=== PATIENT | male | born 1960 | race Caucasian/White ===

== ENCOUNTER 2017-10-22 16:07 | Emergency (ER) | payer OTHER ==
--- NOTE | 2017-10-22 16:48 | ER Document Report ---
ED Fall - General Chief Complaint: Fall Injury Stated Complaint: FALL / HIP INJURY Time Seen by Provider: 10/22/17 16:35 Mode of Arrival: Wheelchair Information source: Patient TRAVEL OUTSIDE OF THE U.S. IN LAST 30 DAYS: No - HPI Occurred: This afternoon Where: Home Context: Fell from standing Associated symptoms: Lost consciousness - HAS SYNCOPAL & NEAR-SYNCOPAL EPISODES ROUTINELY, THOUGHT TO BE PART OF SEIZURE D/O Location of injury/pain: Hip - LEFT Quality of pain: Cramping, Sharp Severity: Moderate - Related data Allergies/Adverse Reactions: quetiapine fumarate [From SeroSIZESEEKERl] Allergy (Mild, Verified 10/22/17 16:08) Past Medical History - General Information source: Patient - Social History Smoking Status: Current Every Day Smoker Chew tobacco use (# tins/day): No Frequency of alcohol use: None Drug Abuse: Marijuana Family History: Arthritis, DM Patient has suicidal ideation: No Patient has homicidal ideation: No Pulmonary Medical History: Reports: Hx Pneumonia Renal/ Medical History: Denies: Hx Peritoneal Dialysis GI Medical History: Reports: Hx Cirrhosis Musculoskeltal Medical History: Reports Hx Arthritis, Reports Hx Musculoskeletal Deformity, Reports Hx Musculoskeletal Trauma Psychiatric Medical History: Reports: Hx Depression Traumatic Medical History: Reports: Hx Fractures Past Surgical History: Reports: Hx Abdominal Surgery - hernia, Hx Orthopedic Surgery - back, neck - Immunizations Hx Pneumococcal Vaccination: 08/03/12 Review of Systems - Review of Systems Constitutional: No symptoms reported EENT: No symptoms reported Cardiovascular: No symptoms reported Respiratory: No symptoms reported Gastrointestinal: No symptoms reported Genitourinary: No symptoms reported Musculoskeletal: See HPI Skin: No symptoms reported Neurological/Psychological: See HPI Physical Exam - Vital signs Vitals: Temp Pulse Resp BP Pulse Ox 97.4 F 110 H 18 119/91 H 92 10/22/17 16:13 10/22/17 16:13 10/22/17 16:13 10/22/17 16:13 10/22/17 16:13 Interpretation: Tachycardic. No: Tachypneic - General General appearance: Appears well, Alert In distress: None - HEENT Head: Normocephalic Eyes: Normal Conjunctiva: Normal Ears: Normal Nasal: Normal Mouth/Lips: Normal Mucous membranes: Normal - Respiratory Respiratory status: No respiratory distress Breath sounds: Normal - Cardiovascular Rhythm: Regular Heart sounds: Normal auscultation Murmur: No - Abdominal Inspection: Normal Distension: No distension - Extremities General upper extremity: Normal inspection General lower extremity: Normal inspection, Tender - L. HIP Hip: Tender - OVER GRT. TROCH, Pain with ROM, Unable to bear weight. No: Deformity - Neurological Neuro grossly intact: Yes Cognition: Normal Orientation: AAOx4 - Psychological Associated symptoms: Normal affect, Normal mood - Skin Skin Temperature: Warm Skin Moisture: Dry Skin Color: Normal Skin Turgor: Elastic Course - Vital Signs Vital signs: Temp Pulse Resp BP Pulse Ox 97.4 F 110 H 18 119/91 H 92 10/22/17 16:13 10/22/17 16:13 10/22/17 16:13 10/22/17 16:13 10/22/17 16:13 - Diagnostic Test Radiology reviewed: Image reviewed, Reports reviewed Discharge - Discharge Clinical Impression: Contusion, hip Qualifiers: Encounter type: initial encounter Laterality: left Qualified Code(s): S70.02XA - Contusion of left hip, initial encounter Condition: Stable Disposition: HOME, SELF-CARE Instructions: Contusion ([facility]), Ice Packs ([facility]), Oral Narcotic Medication ([facility]) Additional Instructions: CRUTCHES, NO WEIGHT BEARING ON LEFT HIP FOR NEXT 2-3 DAYS, THEN GRADUALLY RESUME WEIGHT BEARING TOLERATED. CONTINUE YOUR USUAL MEDICATIONS. FOLLOW UP WITH YOUR PRIMARY CARE PROVIDER IN 2-3 DAYS. Prescriptions: Hydrocodone/Acetaminophen [Eldridge 5-325 mg Tablet] 1 tab PO Q4HP PRN #14 tablet PRN Reason: For Pain
--- NOTE | 2017-10-22 17:01 | RADIOLOGY REPORT (SQ) ---
EXAM DESCRIPTION: HIP LEFT AP/LATERAL COMPLETED DATE/TIME: 10/22/2017 4:51 pm REASON FOR STUDY: left hip pain s/p fall COMPARISON: None. NUMBER OF VIEWS: Two views. TECHNIQUE: AP pelvis and additional frog-leg view of the left hip. LIMITATIONS: None. FINDINGS: MINERALIZATION: Normal. LEFT HIP: No fracture or dislocation. No worrisome bone lesions. RIGHT HIP: No fracture or dislocation. No worrisome bone lesions. PUBIS AND ISCHIUM: No fracture. PELVIS: No fracture. SACRUM: No fracture or dislocation. No worrisome bone lesions. LOWER LUMBAR SPINE: No fracture or dislocation. No worrisome bone lesions. No significant disc disea se. SOFT TISSUES: No findings. OTHER: Fusion hardware noted in the lower lumbar spine. IMPRESSION: NEGATIVE STUDY OF THE LEFT HIP AND PELVIS. NO RADIOGRAPHIC EVIDENCE OF ACUTE INJURY. TECHNICAL DOCUMENTATION: JOB ID: [id number] [employer]- All Rights Reserved Reading location - IP/workstation name: [email or web address]
[2017-10-22] MEDS ORDERED: HYDROMORPHONE HCL INJ/PF 2 MG/ML AMPULE IM ONE ×2 (17:03→18:52)
[2017-10-22] MEDS ORDERED: DIAZEPAM 5 MG TABLET PO ONE (17:03)
[2017-10-22 19:13] VITALS: BP 113/70
== END 2017-10-22 19:25 | disposition home or self-care (01) ==
LOC: ER 16:07
DX: S70.02XA Contusion of left hip, initial encounter (principal); R55 Syncope and collapse; W19.XXXA Unspecified fall, initial encounter; F17.200 Nicotine dependence, unspecified, uncomplicated
CPT/HCPCS: 99283; 96372; 73502; J1170

== ENCOUNTER 2020-03-28 11:56 | Emergency (ER) | payer OTHER ==
[2020-03-28] MEDS ORDERED: ONDANSETRON HCL INJ/PF 4 MG/2 ML SDV IV ONE (12:24)
--- NOTE | 2020-03-28 12:26 | ER Document Report ---
ED Medical Screen (RME) - General Stated Complaint: BODY PAIN Time Seen by Provider: 03/28/20 12:18 Mode of Arrival: Medic Information source: Patient Notes: Patient presents complaining of nausea and vomiting for the past 3 weeks. Patient thinks that his vomiting is due to being taken off of Suboxone 3 weeks ago. Patient states he has vomited once today. Patient complains of generalized body aches although denies any abdominal tenderness. Patient states that he felt as though his heart was beating irregularly and he had palpitations which prompted his visit here today. Patient denies any diarrhea, cough or cold symptoms. Patient states he has not taken any of his usual regular medications due to the nausea. Patient has a history of seizures, depression, PTSD, COPD chronic neck and back pain and dyslipidemia. I have greeted and performed a rapid initial assessment of this patient. A comprehensive ED assessment and evaluation of the patient, analysis of test results and completion of the medical decision making process will be conducted by additional ED providers. TRAVEL OUTSIDE OF THE U.S. IN LAST 30 DAYS: No - Related Data Allergies/Adverse Reactions: quetiapine fumarate [From Seroappirisl] Allergy (Mild, Verified 03/28/20 12:21) Past Medical History Pulmonary Medical History: Reports: Hx Pneumonia Renal/ Medical History: Denies: Hx Peritoneal Dialysis GI Medical History: Reports: Hx Cirrhosis Musculoskeltal Medical History: Reports Hx Arthritis, Reports Hx Musculoskeletal Deformity, Reports Hx Musculoskeletal Trauma Psychiatric Medical History: Reports: Hx Depression Traumatic Medical History: Reports: Hx Fractures Past Surgical History: Reports: Hx Abdominal Surgery - hernia, Hx Orthopedic Surgery - back, neck Physical Exam - Vital signs Vitals: Temp Pulse Resp BP Pulse Ox 98.1 F 85 16 147/102 H 96 03/28/20 12:06 03/28/20 12:06 03/28/20 12:06 03/28/20 12:06 03/28/20 12:06 - General General appearance: Appears well, Alert In distress: None - Cardiovascular Rhythm: Regular Heart sounds: S1 appreciated, S2 appreciated Course - Vital Signs Vital signs: Temp Pulse Resp BP Pulse Ox 98.1 F 85 16 147/102 H 96 03/28/20 12:06 03/28/20 12:06 03/28/20 12:06 03/28/20 12:06 03/28/20 12:06
[2020-03-28] MEDS ORDERED: HYDROMORPHONE HCL INJ/PF 2 MG/ML AMPULE IV ONE (13:08)
[2020-03-28] MEDS ORDERED: CLONIDINE HCL 0.2 MG TABLET PO ONE (13:08)
--- NOTE | 2020-03-28 13:09 | ER Document Report ---
ED General - General Chief Complaint: Pain All Over Stated Complaint: BODY PAIN Time Seen by Provider: 03/28/20 12:18 Mode of Arrival: Ambulatory Information source: Patient Notes: 59-year-old male presenting to the emergency department with a complaint of chronic pain. Apparently he has had multiple surgical procedures on his back and was taking Suboxone daily for the past year and a half. He was living in [place] and receiving the medication physician from [place]. Apparently the physician discontinued prescribing the medication last month. He has symptoms normal diffusely. Contacted the [facility] regarding a outpatient appointment and states that he is scheduled clinic [place], [place]. Presently he is diffuse pain and heaviness in his chest. TRAVEL OUTSIDE OF THE [place] IN LAST 30 DAYS: No - Related Data Allergies/Adverse Reactions: quetiapine fumarate [From [employer]ero[employer]] Allergy (Mild, Verified 03/28/20 12:21) Home Medications: atrovastatin. keppra. suboxone Past Medical History - General Information source: Patient - Social History Smoking Status: Current Every Day Smoker Chew tobacco use (# tins/day): No Frequency of alcohol use: None Drug Abuse: Marijuana Family History: Arthritis, DM Patient has homicidal ideation: No Pulmonary Medical History: Reports: Hx Pneumonia Renal/ Medical History: Denies: Hx Peritoneal Dialysis GI Medical History: Reports: Hx Cirrhosis Musculoskeletal Medical History: Reports Hx Arthritis, Reports Hx Musculo skeletal Deformity, Reports Hx Musculoskeletal Trauma Psychiatric Medical History: Reports: Hx Depression Traumatic Medical History: Reports: Hx Fractures Past Surgical History: Reports: Hx Abdominal Surgery - hernia, Hx Orthopedic Surgery - back, neck - Immunizations Hx Pneumococcal Vaccination: 08/03/12 Review of Systems - Review of Systems Notes: Constitutional: Negative for fever. HENT: Negative for sore throat. Eyes: Negative for visual changes. Cardiovascular: Negative for chest pain. Respiratory: Negative for shortness of breath. Gastrointestinal: Negative for abdominal pain, vomiting or diarrhea. Genitourinary: Negative for dysuria. Musculoskeletal: Diffuse pain Skin: Negative for rash. Neurological: Negative for headaches, weakness or numbness. 10 point ROS negative except as marked above and in HPI. Physical Exam - Vital signs Vitals: Temp Pulse Resp BP Pulse Ox 98.1 F 85 16 147/102 H 96 03/28/20 12:06 03/28/20 12:06 03/28/20 12:06 03/28/20 12:06 03/28/20 12:06 - Notes Notes: PHYSICAL EXAMINATION: Physical Exam: General: Well-nourished well-developed in no acute distress HEENT: NC/AT, pupils equal round and reactive to light, MM moist,nares clear, oropharynx clear, airway patent Neck: supple, no adenopathy, no masses. Good range of motion Lungs: clear, no wheezing, no rales no rhonchi CVS: Regular rate and rhythm no murmur gallop or rub + tenderness in the anterior sternum Abdomen: Soft, active, nontender, no masses, no hepatosplenomegaly Ext: + Back pain, diffuse pain bilateral upper and bilateral lower extremities Neuro: Alert and responsive, moving all 4 extremities on command, cranial nerves intact, no focal findings Skin: Intact no open lesions, no rash PSYCH: Normal mood, normal affect. Course - Re-evaluation Re-evalutation: 03/28/20 15:26 Patient has had a remarkable response to treatment, 1 mg of hydromorphone fluids and he is blood pressure has improved and the pain has significantly improved. I explained to the patient that he is likely in withdrawal from opiates. I have suggested that he get the referral to a pain management clinic. Patient states that he is waiting for the [facility] to make a referral. He is given a prescription for clonidine and hydroxyzine. I am encouraging him to follow-up as noted. - Vital Signs Vital signs: Temp Pulse Resp BP Pulse Ox 98.1 F 85 20 128/87 H 93 03/28/20 12:21 03/28/20 12:06 03/28/20 14:00 03/28/20 14:00 03/28/20 14:00 - Laboratory Result Diagrams: 03/28/20 12:43 03/28/20 12:43 Laboratory results interpreted by me: 03/28/20 12:43 Creatine Kinase 46 L I have reviewed laboratory data and used this information for the treatment decisions regarding the patient. - Diagnostic Test Radiology reviewed: Image reviewed, Reports reviewed Radiology results interpreted by me: 03/28/20 15:29 Chest X-Ray 03/28/20 12:23 IMPRESSION: NO ACUTE RADIOGRAPHIC FINDING IN THE CHEST. Discharge - Discharge Clinical Impression: Diffuse myofascial pain syndrome, Opiate withdrawal Condition: Good Disposition: HOME, SELF-CARE Additional Instructions: You were seen in the emergency department today with diffuse pain and discomfort likely related to your chronic medical problems but also related to opiate withdrawal. You were given prescriptions for clonidine and hydroxyzine to use for withdrawal symptoms. These take these medications as prescribed. Also given a prescription for pain medications Virgie, please use these medications if your symptoms worsen while taking the medications for withdrawal. HOME CARE INSTRUCTIONS & INFORMATION: Thank you for choosing us for your medical needs. We hope you're satisfied with the care you received. After you leave, you must properly care for your problem and, at the same time, observe its progress. Any condition can change. Some illnesses can change rapidly over hours or days. If your condition worsens, return to the Emergency Department or see your physician promptly. ABOUT YOUR X-RAYS AND EKG'S: If you had an EKG or X-rays taken, they have been read by the Emergency Physician. The X-rays and EKG's will also be read by a Radiologist or [employer] within 24 hours. If discrepancies are noted, you will be notified by telephone. Please be certain the ED has a correct telephone number & address where you can be reached. Also, realize that some fractures or abnormalities do not show up on initial X-rays. If your symptoms continue, see your physician. ABOUT YOUR LABORATORY TEST: If you had laboratory tests, the results have been reviewed by the Emergency Physician. Some test results (for example cultures) may not be available for several days. You will be contacted if any test result shows you need additional treatment. Please be certain the ED has a correct telephone number and address where you can be reached. ABOUT YOUR MEDICATIONS: You will receive instructions on how to take your medicine on the prescription label you receive. Additional information may be provided by the Pharmacy. If you have questions afterwards, call the ED for clarification or further instructions. Some prescribed medications may cause drowsiness. Do not perform tasks such as driving a car or operating machinery without consulting your Pharmacist. If you feel you need a refill of pain medication, your condition will need re-evaluation. Please do not call for a refill of any medication. ABOUT YOUR SIGNATURE: Signature of this document acknowledges to followin. Understanding that you received emergency treatment and that you may be released before al medical problems are known or treated. Please be certain the ED has a correct phone number & address where you can be reached. 2. Acknowledgement that you will arrange for follow-up care as recommended. 3. Authorization for the Emergency Physician to provide information to your follow-up Physician in order to maximize your care. AT ANY TIME, IF YOUR SYMPTOMS CHANGE SIGNIFICANTLY OR WORSEN OR YOU DEVELOP NEW SYMPTOMS, RETURN TO THE EMERGENCY DEPARTMENT IMMEDIATELY FOR RE-EVALUATION. OUR GOAL IS TO PROVIDE EXCELLENT MEDICAL CARE! WE HOPE THAT WE HAVE MET YOUR EXPECTATIONS DURING YOUR EMERGENCY DEPARTMENT VISIT AND THAT YOU FEEL YOU HAVE RECEIVED EXCELLENT CARE! Prescriptions: Clonidine HCl [Catapres] 0.2 mg PO DAILY #30 tablet Hydrocodone/Acetaminophen [Virgie 5-325 mg Tablet] 1 tab PO Q6 PRN #10 tablet PRN Reason: Hydroxyzine Pamoate [Vistaril] 25 mg PO Q6 5 Days #20 capsule
[2020-03-28 13:22] LABS: ABSOLUTE BASOPHILS # (AUTO) 0.1 10^3/uL (0.0-0.2); ABSOLUTE EOSINOPHILS # (AUTO) 0.1 10^3/uL (0.0-0.6); ABSOLUTE LYMPHOCYTES (AUTO) 2.5 10^3/uL (0.5-4.7); ABSOLUTE MONOCYTES (AUTO) 0.5 10^3/uL (0.1-1.4); ABSOLUTE NEUT (AUTO) 4.8 10^3/uL (1.7-8.2); BASOPHILS % (AUTO) 0.8 % (0-2); EOSINOPHILS % (AUTO) 1.5 % (0-6); HEMATOCRIT 45.8 % (37.9-51.0); HEMOGLOBIN 16.2 g/dL (13.5-17.0); LYMPHOCYTES % (AUTO) 31.4 % (13-45); MEAN CORPUSCULAR HEMOGLOBIN 32.6 pg (27.0-33.4); MEAN CORPUSCULAR HGB CONC 35.3 g/dL (32.0-36.0); MEAN CORPUSCULAR VOLUME 92 fl (80-97); MONOCYTES % (AUTO) 6.6 % (3-13); PLATELET COUNT 185 10^3/uL (150-450); RED BLOOD COUNT 4.97 10^6/uL (4.35-5.55); RED CELL DISTRIBUTION WIDTH 13.7 % (11.5-14.0); SEGMENTED NEUTROPHILS % (AUTO) 59.7 % (42-78); TOTAL CELLS COUNTED % (AUTO) 100 %
[2020-03-28 13:45] LABS: ALBUMIN 4.7 g/dL (3.5-5.0); ALKALINE PHOSPHATASE 61 U/L (38-126); ANION GAP 10 (5-19); ASPARTATE AMINO TRANSFERASE 24 U/L (17-59); BILIRUBIN,DIRECT 0.4 mg/dL (0.0-0.4); BILIRUBIN,TOTAL 0.8 mg/dL (0.2-1.3); BLOOD UREA NITROGEN 14 mg/dL (7-20); CALCIUM 10.2 mg/dL (8.4-10.2); CARBON DIOXIDE 24 mmol/L (22-30); CHLORIDE 104 mmol/L (98-107); CREATINE KINASE 46 U/L (55-170); GLUCOSE 106 mg/dL (75-110); POTASSIUM 4.6 mmol/L (3.6-5.0); TOTAL PROTEIN 7.6 g/dL (6.3-8.2)
--- NOTE | 2020-03-28 13:47 | RADIOLOGY REPORT (SQ) ---
EXAM DESCRIPTION: CHEST SINGLE VIEW IMAGES COMPLETED DATE/TIME: 03/28/2020 1:09 pm REASON FOR STUDY: palpitations COMPARISON: 2016 EXAM PARAMETERS: NUMBER OF VIEWS: One view. TECHNIQUE: Single frontal radiographic view of the chest acquired. RADIATION DOSE: NA LIMITATIONS: None. FINDINGS: LUNGS AND PLEURA: No opacities, masses or pneumothorax. No pleural effusion. MEDIASTINUM AND HILAR STRUCTURES: No masses. Contour normal. HEART AND VASCULAR STRUCTURES: Heart normal in size. Normal vasculature. BONES: No acute findings. HARDWARE: None in the chest. OTHER: No other significant finding. IMPRESSION: NO ACUTE RADIOGRAPHIC FINDING IN THE CHEST. TECHNICAL DOCUMENTATION: JOB ID: [id number] 2010 [employer]- All Rights Reserved Reading location - IP/workstation name: [email or web address]
[2020-03-28 15:38] VITALS: BP 102/89
--- NOTE | 2020-03-29 20:16 | EKG REPORT ---
SEVERITY:- NORMAL ECG - SINUS RHYTHM : Confirmed by: Rip Costa MD 29-Mar-2020 20:15:55
--- NOTE | 2020-03-29 20:16 | EKG REPORT ---
SEVERITY:- BORDERLINE ECG - SINUS RHYTHM BORDERLINE LEFT AXIS DEVIATION BORDERLINE R WAVE PROGRESSION, ANTERIOR LEADS BORDERLINE T WAVE ABNORMALITIES : Confirmed by: Rip Costa MD 29-Mar-2020 20:16:10
== END 2020-03-28 15:48 | disposition home or self-care (01) ==
LOC: ER 11:56
DX: M79.18 Myalgia, other site (principal); F11.23 Opioid dependence with withdrawal; R11.10 Vomiting, unspecified; F17.200 Nicotine dependence, unspecified, uncomplicated
CPT/HCPCS: 93005; 99285; 96374; 96375; 36415; 82550; 83690; 83735; 84443; 85025; 80053; 84484; 71045; 93010; J1170; J2405